=== PATIENT | male | born 1985 | race Caucasian/White ===

== ENCOUNTER 2020-10-30 13:26 | Emergency (ER) | payer OTHER ==
[2020-10-30 15:08] LABS: EOSINOPHIL 3.1 % (0-5); HCT 47.8 % (42.0-52.0); HGB 16.1 g/dl (13.2-18.0); LYMPHOCYTE 22.3 % (15-48); MCH 30.7 pg (25.0-31.0); MCHC 33.7 g/dL (32.0-36.0); MONOCYTE 10.5 % (0-12); MPV 11.4 fL (6.0-9.5); NEUTROPHIL 62.8 % (41-80); NRBC 0; PLT 260 K/uL (150-400); RBC 5.25 M/uL (4.70-6.00); WBC 9.1 K/uL (4.0-10.5)
[2020-10-30 15:24] LABS: BILIRUBIN NEGATIVE (NEGATIVE); BLOOD NEGATIVE Ery/uL (NEGATIVE); CLARITY CLEAR (CLEAR); COLOR YELLOW (YELLOW); GLUCOSE (U) NORMAL (NORMAL); LEUKOCYTES NEGATIVE Leu/uL (NEGATIVE); NITRITE NEGATIVE (NEGATIVE); PROTEIN NEGATIVE (NEGATIVE); SPECIFIC GRAVITY 1.015 (1.001-1.030); pH 7.5 (5.0-9.0)
[2020-10-30 15:24] LABS: ALBUMIN 3.9 g/dL (3.4-5.0); BILIRUBIN - TOTAL 0.3 mg/dL (0.2-1.0); BUN/CREAT RATIO (CALC) 11.1 RATIO; CREATININE 0.81 mg/dL (0.67-1.17); GLOBULIN (CALCULATION) 3.4 g/dL; POTASSIUM 3.8 mmol/L (3.5-5.1); TOTAL PROTEIN 7.3 g/dL (6.4-8.2)
== END 2020-10-30 17:15 | disposition home or self-care (01) ==
LOC: FER 13:26
PROVIDERS: Nurse Practitioner Family
DX: K92.1 Melena (principal); R11.2 Nausea with vomiting, unspecified; F17.210 Nicotine dependence, cigarettes, uncomplicated; F41.9 Anxiety disorder, unspecified; F32.9 Major depressive disorder, single episode, unspecified; Z79.899 Other long term (current) drug therapy; Z88.0 Allergy status to penicillin
CPT/HCPCS: 36415; 80053; 81003; 82150; 82270; 83690; 85025; J7030; Q9967